=== PATIENT | male | born 1990 | race Caucasian/White ===

== ENCOUNTER 2022-11-18 14:15 | Outpatient (OUT) | payer MEDICAID, SELFPAY ==
[2022-11-18 16:09] LABS: Free T4 0.86 ng/dL (0.76-1.46); Thyroid Stimulating Hormone 0.886 uIU/mL (0.358-3.740)
[2022-11-19 04:07] LABS: Triiodothyronine (T3) 112 ng/dL (71-180)
== END 2022-11-18 14:16 | disposition home or self-care (01) ==
LOC: LAB 14:18
PROVIDERS: PCP Family Medicine; Visit Provider Internal Medicine Cardiovascular Disease
DX: R53.83 Other fatigue (principal); T50.B95A Adverse effect of other viral vaccines, initial encounter
CPT/HCPCS: 36415; 84439; 84443; 84480

== ENCOUNTER 2023-01-06 14:20 | Outpatient (OUT) | payer MEDICAID, SELFPAY ==
--- NOTE | 2023-01-06 14:29 | XR_ITS ---
The [address] [address] Patient Name: NOLVIA RASMUSSEN MRN: [id number] date: 1990 Sex: M Assigned Patient Location: [facility] Current Patient Location: Accession/Order Number: [id number] Exam Date: 01/06/2023 14:34 Report Date: 01/07/2023 00:18 At the request of: JO IRAHETA Procedure: XR knee LT 3V PROCEDURE: XR knee LT 3V HISTORY: Meniscal Injury Left S83.92XA ; acute medial left knee pain COMPARISON: None. FINDINGS: BONES:No fracture, acute abnormality, or significant arthropathy. SOFT TISSUES:No visible soft tissue swelling. EFFUSION:None visible. OTHER: Negative. XR/XR knee LT 3V IMPRESSION: 1. Normal appearance of left knee. Electronically authenticated by: JENNIFER LIU Date: 01/07/2023 00:18
== END 2023-01-06 14:21 | disposition home or self-care (01) ==
LOC: RAD 14:20
PROVIDERS: PCP Family Medicine; Visit Provider Family Medicine
DX: S83.92XA Sprain of unspecified site of left knee, initial encounter (principal)
CPT/HCPCS: 73562

== ENCOUNTER 2023-01-22 09:18 | Outpatient (OUT) | payer MEDICAID, SELFPAY ==
--- NOTE | 2023-01-22 09:22 | MR_ITS ---
The [place] [id number] Patient Name: NOLVIA RASMUSSEN MRN: [id number] date: 1990 Sex: M Assigned Patient Location: MRI Current Patient Location: MRI Accession/Order Number: [id number] Exam Date: 01/22/2023 10:00 Report Date: 01/22/2023 11:09 At the request of: JO IRAHETA Procedure: MR knee LT wo con MR knee LT wo con, 01/22/2023 10:00 AM EST INDICATION: Meniscal Injury Left S83.02XA COMPARISON: Prior x-ray dated 01/06/2023 TECHNIQUE: Multiplanar and multisequential MR images of the left knee were obtained without contrast. FINDINGS: Meniscus: No definite abnormality of menisci is noted. No abnormality of meniscal roots is noted. Ligaments: The ACL, PCL, LCL, MCL and iliotibial tract are unremarkable. Cartilage: There is focal fissuring and partial-thickness defect (less than 50%) in the medial facet of patella. The remainder of cartilages are unremarkable for age. Bone: There is no bone marrow edema. No osseus lesion. No acute fracture or dislocation. Muscles and tendons: The visualized portions of muscles and its tendons are unremarkable. There is trace intra-articular joint effusion. MR/MR knee LT wo con IMPRESSION: Mild chondrosis of the medial facet of patella. Otherwise, no significant abnormality is noted. Electronically authenticated by: MICH GARCIA Date: 01/22/2023 11:09
== END 2023-01-22 09:19 | disposition home or self-care (01) ==
LOC: MRI 09:19
PROVIDERS: PCP Family Medicine; Visit Provider Family Medicine
DX: S83.92XA Sprain of unspecified site of left knee, initial encounter (principal)
CPT/HCPCS: 73721

== ENCOUNTER 2023-09-05 14:25 | Emergency (ER) | payer MEDICAID, SELFPAY ==
[2023-09-05] VITALS (16 sets, daily range): BP systolic 102–129; BP diastolic 74–82; PULSE 71–82; TEMP 36.8; O2SAT 97–100; BMI 29.5
--- NOTE | 2023-09-05 14:49 | ECG_ITS ---
The [facility] Test Date: 2023-09-05 Pat Name: NOLVIA RASMUSSEN Department: Room: - Gender: Male [employer]: : 1990 Requested By: JO IRAHETA Order Number: [id number] Reading MD: JO IRAHETA Measurements Intervals [place] Rate: 79 P: 46 SD: 164 QRS: 35 QRSD: 88 T: 60 QT: 374 QTc: 409 Interpretive Statements 1100 Sinus rhythm 9110 normal ECG No previous ECG available for comparison Electronically Signed On 09-06-2023 6:56:09 EDT by JO IRAHETA
--- NOTE | 2023-09-05 14:59 | CT_ITS ---
The [address] [address] Patient Name: NOLVIA RASMUSSEN MRN: [id number] date: 1990 Sex: M Assigned Patient Location: ER Current Patient Location: ER Accession/Order Number: [id number] Exam Date: 09/05/2023 15:12 Report Date: 09/05/2023 15:56 At the request of: KOREY TERRAZAS Procedure: CT head/brain wo con EXAM: CT head/brain wo con HISTORY: seizure ? COMPARISON: None. TECHNIQUE: Axial CT scans through the head were obtained without IV contrast administration. Dose reduction techniques were achieved by using: automated exposure control and/or adjustment of mA and /or kV according to patient size and/or use of iterative reconstruction technique. FINDINGS: There is no acute intracranial hemorrhage or abnormal extra-axial fluid collection. No mass effect or midline shift is seen. There is no evidence of large acute territorial infarction. There is no hydrocephalus. To the limit of CT, the posterior fossa appears unremarkable. The calvaria and extra cranial soft tissues are unremarkable. The visualized orbits show no abnormality. The visualized paranasal sinuses show no air-fluid level. Mastoid air cells are clear. CT/CT head/brain wo con IMPRESSION: No acute intracranial process. Electronically authenticated by: FERNANDO ENGEL Date: 09/05/2023 15:56
[2023-09-05] MEDS: 0.9 % SODIUM CHLORIDE 1,000 ML 1000 ML IV (15:02)
[2023-09-05 15:09] LABS: Basophils Absolute Auto 0.1 10^3/uL (0.0-0.1); Basophils Percent Auto 0.4 % (0.2-2.0); Eosinophils Absolute Auto 0.3 10^3/uL (0.0-0.7); Eosinophils Percent Auto 2.5 % (0.9-7.0); Hematocrit 46.2 % (42.0-54.0); Hemoglobin 15.5 g/dL (14.0-18.0); Immature Granulocytes Abs Auto 0.06 10^3/uL (0.00-0.03); Immature Granulocytes Pct Auto 0.4 % (0.0-0.5); Lymphocytes Absolute Auto 2.8 10^3/uL (1.2-3.8); Mean Corpuscular HGB Conc 33.5 g/dL (29.9-35.2); Mean Corpuscular Volume 95.5 fL (80.0-94.0); Mean Platelet Volume 10.1 fL (9.5-13.5); Monocytes Absolute Auto 1.4 10^3/uL (0.3-0.8); Monocytes Percent Auto 10.3 % (1.7-12.0); Neutrophils Absolute Auto 8.7 10^3/uL (1.4-6.5); Neutrophils Percent Auto 65.4 % (43.0-75.0); Platelet Count 328 10^3/uL (150-450); Red Blood Count 4.84 10^6/uL (4.70-6.10); Red Cell Distribution Width 12.1 % (11.0-15.0); White Blood Count 13.4 10^3/uL (4.0-11.0)
[2023-09-05 15:19] LABS: Internal Control Within Normal Limits; SARS-CoV-2 Ag NEGATIVE (NEGATIVE)
--- NOTE | 2023-09-05 15:21 | XR_ITS ---
The [address] [address] Patient Name: NOLVIA RASMUSSEN MRN: [id number] date: 1990 Sex: M Assigned Patient Location: ER Current Patient Location: Accession/Order Number: [id number] Exam Date: 09/05/2023 15:30 Report Date: 09/05/2023 17:10 At the request of: KOREY TERRAZAS Procedure: XR chest 1V EXAM: XR chest 1V TECHNIQUE: Single AP view chest HISTORY: cough COMPARISON: None. FINDINGS: The heart and mediastinum are unremarkable. The lung sy are clear of any acute infiltrate, effusion or mass. No acute bony abnormality. Implanted electronic device seen over the left hemithorax. XR/XR chest 1V IMPRESSION: No acute pulmonary disease. Electronically authenticated by: MICHAEL GRIMM Date: 09/05/2023 17:10
[2023-09-05 15:26] LABS: Alanine Aminotransferase 129 U/L (16-63); Albumin Globulin Ratio 1.1; Albumin Level 4.3 g/dL (3.4-5.0); Alkaline Phosphatase 74 U/L (46-116); Anion Gap 11.9; Aspartate Amino Transferase 48 U/L (15-37); BUN Creatinine Ratio 11.7; Bilirubin Total 0.4 mg/dL (0.2-1.0); Calcium 9.5 mg/dL (8.5-10.1); Carbon Dioxide 28.8 mmol/L (21.0-32.0); Chloride 103 mmol/L (98-107); Estimated GFR (African America >60 (>=60); Estimated GFR (Non-African Ame >60 (>=60); Glucose 99 mg/dL (74-106); Magnesium 1.9 mg/dL (1.8-2.4); Potassium 4.7 mmol/L (3.5-5.1); Sodium 139 mmol/L (136-145); Total Protein 8.3 g/dL (6.4-8.2)
--- NOTE | 2023-09-05 17:46 | ED.DIZZY1 ---
HPI - Dizziness General Chief Complaint: Syncope Stated Complaint: COUGHING/NAUSEA/NUMBNESS Time Seen by Provider: 09/05/23 14:48 Source: patient Mode of arrival: walk-in Limitations: no limitations History of Present Illness HPI Narrative: The patient have history of long-haul COVID-19, he has been feeling tired yesterday but today he mentioned that he was just mowing the lawn and apparently spend a lot of time outside where it was warm he was not drinking water, when he got inside that he felt nauseous he was with his mother when he looked at her and vomited and then passed out, the mother mentioned that this happened for few seconds during which there was no tongue biting or incontinence of urine or stool The patient mother mentioned that he had his eye rolling backwards and according to the patient when he woke up he was not confused and his mother also mentioned that he was not confused when he woke up The patient had no chest pain at any time no difficulty breathing he did had a cough before the vomiting Related Data Allergies Allergy/AdvReac Type Severity Reaction Status Date / Time ciprofloxacin [From Cipro] Allergy Intermediate Vomiting Verified 09/05/23 15:03 Review of Systems ROS Status of ROS 10 or more systems reviewed and unremarkable except as noted in history and below Exam Narrative Exam Narrative: Nurses notes and vital signs reviewed and patient is not hypoxic. General: Well-appearing and in no apparent distress. Skin: Warm, dry, no pallor noted. No rash. Head: Normocephalic, atraumatic. Neck: Supple, non-tender. Eye: Pupils are equal, round and EOMI. No scleral icterus. Ears, Nose, Mouth, and Throat: TM are clear, no nasal mucosal hypertrophy. Oral mucosa is moist, no posterior oropharynx erythema, uvula is mid-line Cardiovascular: Regular Rate and Rhythm without murmur, gallop or rub. Respiratory: No accessory muscle use or respiratory distress. Lungs are clear to auscultation, no wheezing, rales or rhonchi Chest Wall: no tenderness Back: No midline thoracic or lumbar vertebral tenderness. No CVA tenderness Musculoskeletal: normal ROM, no calf or popliteal tenderness, no lower extremity edema/swelling GI: Abdomen is soft, non-distended. Normal bowel sounds. No masses appreciated. No tenderness to palpation. No rebound, guarding, or rigidity noted. Neurological: A&O x4. No cranial nerve dysfunction observed. No truncal ataxia. Moves all extremities. Sensation intact. Psychiatric: Cooperative and interactive. Normal mood and affect. Constitutional Vital Signs, click to edit/add: Last Vital Signs Temp 98.3 F 09/05/23 14:41 Pulse 73 09/05/23 16:30 Resp 25 H 09/05/23 16:30 BP 119/74 09/05/23 16:30 Pulse Ox 97 09/05/23 16:30 O2 Del Method Room Air 09/05/23 15:55 Course Vital Signs Vital signs: Vital Signs Temperature 98.3 F 09/05/23 14:41 Pulse Rate 76 09/05/23 14:41 Respiratory Rate 18 09/05/23 14:41 Blood Pressure 119/75 09/05/23 14:41 Pulse Oximetry 100 09/05/23 14:41 Oxygen Delivery Method Room Air 09/05/23 14:41 Temperature 98.3 F 09/05/23 14:41 Pulse Rate 73 09/05/23 16:30 Respiratory Rate 25 H 09/05/23 16:30 Blood Pressure 119/74 09/05/23 16:30 Pulse Oximetry 97 09/05/23 16:30 Oxygen Delivery Method Room Air 09/05/23 15:55 MDM - Dizziness MDM Narrative Medical decision making narrative: The patient EKG showing sinus rhythm with a heart rate of [address] elevation or depression The patient presentation is could be secondary to either heat reaction or the fact that he had a nausea before that could be vasovagal as well At the moment the patient denies any complaint He was provided with IV fluids CBC and chemistry showed no acute pathology except for some mild elevation in the LFTs and mild elevation in the white blood cells with no source of infection Chest x-ray on the prelim reading showed no acute pathology CT head showed no acute pathology It was noted that the patient have a loop recorder that was placed almost more than 3 days ago but he has not been following up according to his history with his rn admission and does not know what the plan for that. He also did not receive any call regarding any abnormalities Right now the patient presentation is mostly secondary to vasovagal or heat reaction he was feeling much better after IV fluids and his EKG showed no acute concern for any arrhythmia Right now the patient be discharged home with hydration as well as follow-up with his doctor he is to come back in case of new symptoms of concern The patient is to follow up with primary care physician in next 2-3 days or to return to the emergency department should any of the signs or symptoms worsen or new symptoms develop. The patient agrees with the following Diagnosis and Treatment plan and the patient will be discharged home. Lab Data Labs: Lab Results 09/05/23 09/05/23 Range/Units 15:00 15:03 WBC 13.4 H (4.0-11.0) 10^3/uL RBC 4.84 (4.70-6.10) 10^6/uL Hgb 15.5 (14.0-18.0) g/dL Hct 46.2 (42.0-54.0) % MCV 95.5 H (80.0-94.0) fL MCH 32.0 (25.9-34.0) pg MCHC 33.5 (29.9-35.2) g/dL RDW 12.1 (11.0-15.0) % Plt Count 328 (150-450) 10^3/uL MPV 10.1 (9.5-13.5) fL Neut % (Auto) 65.4 (43.0-75.0) % Lymph % (Auto) 21.0 (20.5-60.0) % Gregory % (Auto) 10.3 (1.7-12.0) % Eos % (Auto) 2.5 (0.9-7.0) % Baso % (Auto) 0.4 (0.2-2.0) % Neut # (Auto) 8.7 H (1.4-6.5) 10^3/uL Lymph # (Auto) 2.8 (1.2-3.8) 10^3/uL Gregory # (Auto) 1.4 H (0.3-0.8) 10^3/uL Eos # (Auto) 0.3 (0.0-0.7) 10^3/uL Baso # (Auto) 0.1 (0.0-0.1) 10^3/uL Abs Immat Gran (auto) 0.06 H (0.00-0.03) 10^3/uL Imm/Tot Granulo (auto) 0.4 (0.0-0.5) % Sodium 139 (136-145) mmol/L Potassium 4.7 (3.5-5.1) mmol/L Chloride 103 (98-107) mmol/L Carbon Dioxide 28.8 (21.0-32.0) mmol/L Anion Gap 11.9 BUN 12.0 (7.0-18.0) mg/dL Creatinine 1.03 (0.70-1.30) mg/dL Est GFR ( Amer) >60 (>=60) Est GFR (Non-Af Amer) >60 (>=60) BUN/Creatinine Ratio 11.7 Glucose 99 (74-106) mg/dL Calcium 9.5 (8.5-10.1) mg/dL Magnesium 1.9 (1.8-2.4) mg/dL Total Bilirubin 0.4 (0.2-1.0) mg/dL AST 48 H (15-37) U/L ALT 129 H (16-63) U/L Alkaline Phosphatase 74 (46-116) U/L Troponin I High Sens 5.0 (4.0-76.1) pg/mL Total Protein 8.3 H (6.4-8.2) g/dL Albumin 4.3 (3.4-5.0) g/dL Globulin 4.0 g/dL Albumin/Globulin Ratio 1.1 SARS-CoV-2 Ag (CV2AG) Negative (NEGATIVE) Discharge Plan Discharge Stand Alone Forms: Portal Instructions Chief Complaint: Syncope Clinical Impression: Vasovagal syncope Patient Disposition: Home, Self-Care Time of Disposition Decision: 16:31 Condition: Good Print Language: Ecuadorean Instructions: Syncope (DC) Referrals: Berto Jolly MD [Primary Care Provider] - 1 week Discharge Date/Time: 09/05/23 16:45
== END 2023-09-05 16:45 | disposition home or self-care (01) ==
PROVIDERS: Emergency Provider Emergency Medicine; PCP Family Medicine
DX: R55 Syncope and collapse (principal); U09.9 Post COVID-19 condition, unspecified
CPT/HCPCS: 36415; 70450; 71045; 80053; 83735; 84484; 85025; 87811; 93005; 96360; 99285

== ENCOUNTER 2023-09-23 07:41 | Outpatient (OUT) | payer MEDICAID, SELFPAY ==
--- OUTSIDE RECORDS SUMMARY | 2023-09-23 07:43 | XMS_ITS | CCD ---
Author Organization [facility] Care Team Providers Care Target Trimmer Name Role Phone ESEQUIEL ., DR OSORIO Consulting Unavailable HOY ., DR OSORIO Primary Care Unavailable HOY ., DR OSORIO Admitting Unavailable HOY ., DR OSORIO Attending Unavailable WEST, DR LAVERN Perkins Consulting Unavailable HOY ., DR OSORIO Consulting Unavailable HOY ., DR OSORIO Primary Care Unavailable HOY ., DR OSORIO Admitting Unavailable HOY ., DR OSORIO Attending Unavailable HOY ., DR OSORIO Consulting Unavailable HOY ., DR OSORIO Primary Care Unavailable HOY ., DR OSORIO Admitting Unavailable HOY ., DR OSORIO Attending Unavailable HOY ., DR OSORIO Attending Unavailable HOY ., DR OSORIO Consulting Unavailable HOY ., DR OSORIO Primary Care Unavailable HOY ., DR OSORIO Admitting Unavailable SAUL, LOUIE Attending Unavailable JOSSELINEIALINE Attending Unavailable BARAZI, ALINE Attending Unavailable TERESAMIRI Attending Unavailable LANCE, BETO Referring Unavailable LANCE, BETO Referring Unavailable LANCE, BETO Referring Unavailable LANCE, BETO Referring Unavailable LANCE, BETO Referring Unavailable SAUL, LOUIE Referring Unavailable LANCE, BETO Referring Unavailable Allergies Allergy Classification Reported Allergen(s) Allergy Type Date of Onset Reaction(s) Facility (1 source) Ciprofloxacin Drug Allergy 10-22-2016 [facility] Repository (1 source) Ciprofloxacin; Translations: [CIPROFLOXACIN] Drug Allergy 02-12-2017 [facility] Repository Problems Active Problems Problem Classification Problem Date Documented Da te Episodic/Chronic Congestive heart failure; nonhypertensive (1 source) Unspecified diastolic (congestive) heart failure; Translations: [UNSPECIFIED DIASTOLIC HEART FAILURE] Onset: 10-24-2021 Chronic Coronary atherosclerosis and other heart disease (2 sources) Other forms of angina pectoris; Translations: [Other forms of angina pectoris] Onset: 07-02-2022 Chronic Essential hypertension (2 sources) Essential (primary) hypertension; Translations: [Essential (primary) hypertension] Onset: 08-17-2023 Chronic Hypertension with complications and secondary hypertension (1 source) Hypertensive heart disease with heart failure; Translations: [HTN HEART DISEASE W/HEART FAIL] Onset: 10-24-2021 Chronic Other lower respiratory disease (1 source) Other forms of dyspnea; Translations: [OTHER FORMS OF DYSPNEA] Onset: 06-11-2022 Episodic Residual codes; unclassified (4 sources) Obstructive sleep apnea (adult) (pediatric); Translations: [OBSTRUCTIVE SLEEP APNEA] Onset: 05-20-2022 Chronic Residual codes; unclassified (1 source) Insomnia, unspecified; Translations: [INSOMNIA UNSPECIFIED] Onset: 06-11-2022 Episodic Unclassified (1 source) Myalgic encephalomyelitis/c hronic fatigue syndrome; Translations: [Myalgic encephalomyelitis/c hronic fatigue syndrome] Onset: 08-17-2023 Unclassified (1 source) Post covid-19 condition, unspecified; Translations: [Post covid-19 condition, unspecified] Onset: 08-17-2023 Unclassified (1 source) Other ventricular tachycardia; Translations: [Other ventricular tachycardia] Onset: 07-15-2022 Past or Other Problems Problem Classification Problem Date Documented Da te Episodic/Chronic Cardiac dysrhythmias (2 sources) Palpitations; Translations: [Palpitations] Onset: 06-02-2022 Episodic Deficiency and other anemia (1 source) Anemia, unspecified; Translations: [ANEMIA UNSPECIFIED] Onset: 10-24-2021 Episodic Diabetes mellitus without complication (1 source) Other abnormal glucose; Translations: [OTHER ABNORMAL GLUCOSE] Onset: 10-24-2021 Episodic E Codes: Adverse effects of medical drugs (2 sources) Adverse effect of other viral vaccines, initial encounter; Translations: [Adverse effect of other viral vaccines, initial encounter] Onset: 11-18-2022 Episodic Malaise and fatigue (6 sources) Other fatigue; Translations: [OTHER FATIGUE] Onset: 06-05-2022 Episodic Nonspecific chest pain (3 sources) Chest pain, unspecified; Translations: [CHEST PAIN UNSPECIFIED] Onset: 06-11-2022 Episodic Syncope (6 sources) Syncope and collapse; Translations: [SYNCOPE AND COLLAPSE] Onset: 10-23-2021 Episodic Unclassified (1 source) Myalgic encephalomyelitis/c hronic fatigue syndrome; Translations: [Myalgic encephalomyelitis/c hronic fatigue syndrome] Onset: 08-17-2023 Unclassified (1 source) Post covid-19 condition, unspecified; Translations: [Post covid-19 condition, unspecified] Onset: 08-17-2023 Unclassified (1 source) Other ventricular tachycardia; Translations: [Other ventricular tachycardia] Onset: 02-09-2023 Results Test Name Value Interpretation Reference Range Facility Office Visiton 08-17-2023 Follow-up visit [id number] Alec Echevarria 1990 M Date Provider Department Center 08/17/2023 MIRI ONEAL JEFF [facility] Family History Problem Relation Age of Onset Stroke Father 79 Comments: Needed to have a thrombectomy Other Brother Other Father's Brother Arrhythmia Maternal Grandfather Comments: s/p ablation Angina Maternal Grandfather 79 Heart attack Paternal Grandmother 77 Comments: from massive MD Family Status - Relation Status Age at Father Brother Father's Brother Maternal Grandfather Paternal Grandmother Level of Service:[id number] MS PHYS/QHP TELEPHONE EVALUATION 21-30 MIN Normal [facility] Office Visiton 02-09-2023 Follow-up visit [id number] Alec Echevarria 1990 M [facility] Provider Department Center 02/09/2023 ALINE WOODS JEFF [facility] Family History Problem Relation Age of Onset Stroke Father 79 Comments: Needed to have a thrombectomy Other Brother Other Father's Brother Arrhythmia Maternal Grandfather Comments: s/p ablation Angina Maternal Grandfather 79 Heart attack Paternal Grandmother 77 Comments: from massive MD Family Status - Relation Status Age at Father Brother Father's Brother Maternal Grandfather Paternal Grandmother Level of Service:[id number] MS OFFICE/OUTPATIENT ESTABLISHED MOD MDM 30 MIN Normal [facility] Office Visiton 11-18-2022 Follow-up visit [id number] Alec Echevarria 1990 M Date Provider Department Center 11/18/2022 LOUIE DIAZ JEFF [facility] Family History Problem Relation Age of Onset Stroke Father 79 Comments: Needed to have a thrombectomy Other Brother Other Father's Brother Arrhythmia Maternal Grandfather Comments: s/p ablation Angina Maternal Grandfather 79 Heart attack Paternal Grandmother 77 Comments: from massive MD Family Status - Relation Status Age at Father Brother Father's Brother Maternal Grandfather Paternal Grandmother Level of Service:69528 MS OFFICE/OUTPATIENT NEW MODERATE MDM 45-59 MINUTES Normal [facility] Office Visiton 09-05-2022 Follow-up visit [id number] Alec Echevarria 1990 M Date Provider Department Center 09/05/2022 Neri-ALINE REYES CARD [facility] Family History Problem Relation Age of Onset Stroke Father 79 Comments: Needed to have a thrombectomy Other Brother Other Father's Brother Arrhythmia Maternal Grandfather Comments: s/p ablation Angina Maternal Grandfather 79 Heart attack Paternal Grandmother 77 Comments: from massive MD Family Status - Relation Status Age at Father Brother Father's Brother Maternal Grandfather Paternal Grandmother Level of Service:01650 MS OFFICE/OUTPATIENT ESTABLISHED MOD MDM 30-39 MIN Normal [facility] NM STRESS/REST MULTIon 06-05 NM STRESS/REST MULTI Patient: ALEC ECHEVARRIA. Exam Date: 06/05/2022 : 1990 Gender:M Ordering : DR JO IRAHETA . Admission #: [id number] Family : Order #: [id number] CLICK HERE TO VIEW EXAM RADIOLOGY REPORT PROCEDURE: RADIONUCLIDE IMAGING STRESS/REST MULTI COMPARISON: None. INDICATIONS: Chest pain TECHNIQUE: Exam Description: Stress/Rest one day protocol gated SPECT Rest Imagin.1 mCi Tc-99m Cardiolite IV on 06/05/2022 Stress Imaging 30.6 mCi Tc-99m Cardiolite IV on 06/05/2022 Exercise Protocol: Stevie Heart Rate (bpm): Rest: 65 Max: 162 PMHR: 86 Blood Pressure: Rest: 138/96 Max: 206/116 Exercise Time: Minutes: 11 Seconds: 00 Stage Reached: Stage: 4 Mets 13.4 Symptoms: Rest and peak stress ECG findings were normal and the exercise portion of the study was normal per attending physician Dr. Mejia . For more details please see separate cardiac stress test report. FINDINGS: QUALITY OF STUDY: Good. PERFUSION DEFECT: LOCATION: Basal inferoseptal. Basal inferior. Mid-inferoseptal. Mid-inferior. Apical inferior. SIZE: Large (5 or more segments). SEVERITY: Moderate. TYPE: Persistent. WALL MOTION: Normal. LV SIZE: Enlarged; EDV 120 mL. TID / TCD: None; 0.9 LVEF: Normal. Calculated EF 57%. SUMMARY: Myocardial perfusion imaging study has ABNORMAL findings. CONCLUSION: 1. Moderate to large size area of mild to moderate decreased activity inferior and septal blood, RCA distribution 2. No redistribution to suggest reversible ischemia 3. Normal exercise test Dictated by: Lavern Lima MD on 06/09/2022 at 09:28 Approved by: Lavern Lima MD on 06/09/2022 at 09:31 Normal [facility] ECHOCARDIO M/2D COMPLETEon 0 05-27-2022 ECHOCARDIO M/2D COMPLETE Patient: ALEC ECHEVARRIA Exam Date: 05/27/2022 : 1990 Gender:M Ordering : DR JO IRAHETA . Admission #: [id number] Family : Order #: [id number] CLICK HERE TO VIEW EXAM ECHOCARDIOGRAM REPORT PROCEDURE: CARDIO PULMONARY ECHOCARDIO M/2D COMP INDICATIONS: Chest pain COMPARISON: None. DESCRIPTION: COMPLETE ECHOCARDIOGRAM Real-time transthoracic echocardiography with 2D, M-mode, spectral and color flow Doppler performed. QUALITY: Technical quality was good. LEFT VENTRICLE: Normal chamber size. Borderline left ventricular hypertrophy. Global left ventricular systolic function is normal. LV EF: Visual estimation of left ventricular ejection fraction is 55-60%. DIASTOLIC: Normal diastolic function. ATRIAL SEPTUM: LEFT ATRIUM: Normal chamber size. RIGHT ATRIUM: Normal chamber size. RIGHT VENTRICLE: Normal chamber size. Normal right ventricular systolic function. TRICUSPID VALVE: Normal mobility and thickness. No stenosis with trivial regurgitation. No evidence of pulmonary hypertension. RVSP 25 mmHg MITRAL VALVE: Normal mobility and thickness. No mitral valve prolapse. No evidence of mitral valve stenosis. There is no mitral annular calcification. No mitral regurgitation. AORTIC VALVE: Normal trileaflet appearance. No visible sclerosis. Normal leaflet mobility. No evidence of aortic valve stenosis. Trivial aortic regurgitation. AORTIC ROOT: Normal diameter and appearance. PULMONIC VALVE: Normal thickness and mobility. No stenosis. Trivial regurgitation. PERICARDIUM: No evidence of pericardial effusion. IVC: Collapses with inspirations. Normal size. PLEURA: CONCLUSION: 1. Normal ventricular function. LVEF is 55 to 60%. 2. No significant valvular dysfunction. 3. Normal right-sided pressures. 4. No pericardial effusion. Adult Echocardiography Procedure Report Left Ventricle LVEDD (3.7 - 5.6 cm): 4.26 cm LVESD (2.2 - 4.0 cm): 2.75 cm LVIVS thickness (0.6 - 1.2 cm): 1.11 cm LVPW thickness (0.5 - 1.0 cm): 1.02 cm e': 0.23 m/s E - e': 3.35 LVOT Max Gradient: 3.54 mm[Hg] Peak Velocity (LVOT): 0.94 m/s Mean Velocity (LVOT): 0.59 m/s LVOT Diameter 2.18 cm Left Ventricular Ejection Fraction: 55-60% Left Atrium LA Volume Index (2D A2C): 52.31 ml, 52.31 ml Left Atrium Systolic Dimension: 3.02 cm Mitral Valve MV E to A Ratio: 1.52 Mitral Valve A-Wave Peak Velocity: 0.50 m/s Mitral Valve E-Wave Peak Velocity: 0.76 m/s Right Ventricle RV Internal Diastolic Dimension: 3.63 cm Aorta AO Root Diam: 3.11 cm Ascending Ao Diam: 2.51 cm Aortic Valve AoV Area (Peak Ulisses): 2.93 cm2, 2.93 cm2 AoV Area (VTI): 3.10 cm2, 3.10 cm2 Peak Velocity(Antegrade Flow): 1.19 m/s Peak Gradient(Antegrade Flow): 5.68 mm[Hg] Mean Velocity(Antegrade Flow): 0.85 m/s Mean Gradient(Antegrade Flow): 3.29 mm[Hg] Velocity Time Integral: 24.78 cm Tricuspid Valve Peak Velocity (Regurgitant Flow): 1.97 m/s, 2.33 m/s Peak Velocity: 0.47 m/s Pulmonic Valve Mean Gradient: 2.26 mm[Hg], 2.45 mm[Hg] Mean Velocity: 0.69 m/s, 0.72 m/s Peak Velocity: 1.02 m/s, 1.09 m/s Peak Gradient: 4.14 mm[Hg], 4.75 mm[Hg] Right Atrium Right Atrium Systolic Pressure: 33.03 ml, 33.03 ml Dictated by: Eusebio Washington M.D. on 05/29/2022 at 17:51 Approved by: Eusebio Washington M.D. on 05/29/2022 at 17:54 Normal [facility] T4, T3U, FTI LABCORPon 10-24 Free Thyroxine Index 2.4 Normal 1.2-4.9 [facility] Comment on above: Performed By: #### T HYLC #### [facility] [address] [place] [address] Dr. Mike Turner T3 Uptake 31 % Normal 24-39 [facility] Comment on above: Performed By: #### T HYLC #### [facility] [address] [place] [address] Dr. Mike Turner T4 [Mass/Vol] 7.6 ug/dL Normal 4.5-12.0 [facility] Comment on above: Performed By: #### T HYLC #### [facility] [address] [place] [address] Dr. Mike Turner BNPon 10-23-2021 Natriuretic peptide B (Bld) [Mass/Vol] 46.0 pg/mL Normal <=450.0 [facility] Comment on above: Performed By: #### B RV TECHNICIAN, TSH, CMP, LIPID, CK #### [facility] [address] [place] [address] Dr. Mike Turner CBC AUTO DIFFon 10-23-2021 BASO # 0.0 103/ul Normal 0.0-0.1 [facility] Comment on above: Performed By: #### C BC #### [facility] [address] [place] [address] Dr. Mike Turner Basophils/100 WBC (Bld) 0.3 % Normal 0.2-2.0 [facility] Comment on above: Performed By: #### C BC #### [facility] [address] [place] [address] Dr. Mike Turner EO # 0.1 103/ul Normal 0.0-0.7 [facility] Comment on above: Performed By: #### C BC #### [facility] [address] [address] [address] Mike Turner Eosinophils/100 WBC (Bld) 1.2 % Normal 0.9-7.0 [facility] Comment on above: Performed By: #### C BC #### [facility] [address] [place] [address] Dr. Mike Turner Erythrocyte distribution width (RBC) [Ratio] 12.4 % Normal 11.0-15.0 [facility] Comment on above: Performed By: #### C BC #### [facility] [address] [place] [address] Dr. Mike Turner Hematocrit (Bld) [Volume fraction] 46.3 % Normal 42.0-54.0 [facility] Comment on above: Performed By: #### C BC #### [facility] [address] [place] [address] Dr. Mike Turner Hemoglobin (Bld) [Mass/Vol] 15.4 g/dL Normal 14.0-18.0 [facility] Comment on above: Performed By: #### C BC #### [facility] [address] [place] [address] Dr. Mike Turner IG # 0.05 10e3/ul Critically high 0.00-0.03 [facility] Comment on above: Performed By: #### C BC #### [facility] [address] [place] [address] Dr. Mike Turner IG % 0.5 % Normal 0.0-0.5 [facility] Comment on above: Performed By: #### C BC #### [facility] [address] [place] [address] Dr. Mike Turner LYMPH # 4.0 103/ul Critically high 1.2-3.8 [facility] Comment on above: Performed By: #### C BC #### [facility] [address] [place] [address] Dr. Mike Turner Lymphocytes/100 WBC (Bld) 36.9 % Normal 20.5-60.0 [facility] Comment on above: Performed By: #### C BC #### [facility] [address] [place] [address] Dr. Mike Turner MANUAL DIFF REQ NO Normal [facility] Comment on above: Performed By: #### C BC #### [facility] [address] [place] [address] Dr. Mike Turner MCH (RBC) [Entitic mass] 31.8 pg Normal 25.9-34.0 [facility] Comment on above: Performed By: #### C BC #### [facility] [address] [place] [address] Dr. Mike Turner MCHC (RBC) [Mass/Vol] 33.3 g/dL Normal 29.9-35.2 [facility] Comment on above: Performed By: #### C BC #### [facility] [address] [place] [address] Dr. Mike Turner MCV (RBC) [Entitic vol] 95.7 fL Critically high 80.0-94.0 [facility] Comment on above: Performed By: #### C BC #### [facility] [address] [place] [address] Dr. Mike Turner MONO # 1.2 103/ul Critically high 0.3-0.8 [facility] Comment on above: Performed By: #### C BC #### [facility] [address] [place] [address] Dr. Mike Turner Monocytes/100 WBC (Bld) 10.8 % Normal 1.7-12.0 [facility] Comment on above: Performed By: #### C BC #### [facility] [address] [place] [address] Dr. Mike Turner NEUT # 5.4 103/ul Normal 1.4-6.5 [facility] Comment on above: Performed By: #### C BC #### [facility] [address] [place] [address] Dr. Mike Turner Neutrophils/100 WBC (Bld) 50.3 % Normal 43.0-75.0 [facility] Comment on above: Performed By: #### C BC #### [facility] [address] [place] [address] Dr. Mike Turner Platelet mean volume (Bld) [Entitic vol] 9.7 fL Normal 9.5-13.5 [facility] Comment on above: Performed By: #### C BC #### [facility] [address] [place] [address] Dr. Mike Turner PLT 340 103/ul Normal 150-450 [facility] Comment on above: Performed By: #### C BC #### [facility] [address] [place] [address] Dr. Mike Turner RBC 4.84 106/ul Normal 4.70-6.10 [facility] Comment on above: Performed By: #### C BC #### [facility] [address] [place] [address] Dr. Mike Turner WBC 10.8 103/ul Normal 4.0-11.0 [facility] Comment on above: Performed By: #### C BC #### [facility] [address] [place] [address] Dr. Mike Turner CPKon 10-23-2021 CK [Catalytic activity/Vol] 89 U/L Normal 39-308 [facility] Comment on above: Performed By: #### B RV TECHNICIAN, TSH, CMP, LIPID, CK #### [facility] [address] [place] [address] Dr. Mike Turner GLYCOHEMOGLOBIN A1Con 2021 ADA RECOMMENDATION SEE BELOW Normal [facility] Comment on above: Result Comment: ADA RECOMMENDED LIMIT 4.0 - 6.0 ADA THERAPEUTIC TARGET < 7.0 ACTION SUGGESTED > 7.0 Performed By: #### A 1C #### [facility] [address] [place] [address] Dr. Mike Turner Glucose [Mass/Vol] 103 mg/dL Normal [facility] Comment on above: Performed By: #### A 1C #### [facility] [address] [place] [address] Dr. Mike Turner HbA1c (Bld) [Mass fraction] 5.2 % Normal 4.5-6.2 [facility] Comment on above: Performed By: #### A 1C #### [facility] [address] [place], [place] [address] Dr. Mike Turner IRONon 10-23-2021 Iron [Mass/Vol] 90.0 ug/dL Normal 65.0-175.0 [facility] Comment on above: Performed By: #### I HAL #### [facility] [address] [address] [address] Mike Turner LIPID PROFILEon 10-23-2021 CHOL-HDL RATIO NORM SEE BELOW Normal [facility] Comment on above: Result Comment: 3.3 - 4.4 LOW RISK 4.4 - 7.1 AVERAGE RISK 7.1 - 11.0 MODERATE RISK >11.0 HIGH RISK Performed By: #### B RV TECHNICIAN, TSH, CMP, LIPID, CK ####[facility] [id number] [id number]. Mike Turner Cholesterol [Mass/Vol] 162 mg/dL Normal <=200 [facility] Comment on above: Performed By: #### B RV TECHNICIAN, TSH, CMP, LIPID, CK ####[facility] [id number] [id number]. Mike Turner Cholesterol in HDL [Mass/Vol] 60 mg/dL Normal 40-60 [facility] Comment on above: Performed By: #### B RV TECHNICIAN, TSH, CMP, LIPID, CK ####[facility] [id number] [place], [place] [address]Fi. Mike Turner Cholesterol in LDL [Mass/Vol] 80.8 mg/dL Normal [facility] Comment on above: Performed By: #### B RV TECHNICIAN, TSH, CMP, LIPID, CK ####[facility] [id number] [place], [place] [address]Wz. Mike Turner Cholesterol.total/Ch olesterol in HDL [Mass ratio] 2.7 {ratio} Normal [facility] Comment on above: Performed By: #### B RV TECHNICIAN, TSH, CMP, LIPID, CK ####[facility] [id number] [id number]. Mike Turner HDL NORMAL > or = 60 mg/dl - LO W CARDIOVASCULAR RISK <40 mg/dl - HIGH CARDIOVASCULAR RISK Normal [facility] Comment on above: Performed By: #### B RV TECHNICIAN, TSH, CMP, LIPID, CK ####[facility] [id number] [place] [address]Dr. Mike Turner LDL CALC NORMAL SEE BELOW Normal [facility] Comment on above: Result Comment: <100 mg/dl OPTIMAL 100 - 129 mg/dl NEAR OR ABOVE OPTIMAL 130 - 159 mg/dl BORDERLINE HIGH 160 - 189 mg/dl HIGH >190 mg/dl VERY HIGH Performed By: #### B RV TECHNICIAN, TSH, CMP, LIPID, CK ####[facility] [id number] [place] [address]Dr. Mike Turner Triglyceride [Mass/Vol] 106 mg/dL Normal <=150 [facility] Comment on above: Performed By: #### B RV TECHNICIAN, TSH, CMP, LIPID, CK ####[facility] [id number] [place] [address]Dr. Mike Turner VLDL CALC 21.2 mg/dL Normal [facility] Comment on above: Performed By: #### B RV TECHNICIAN, TSH, CMP, LIPID, CK ####[facility] [id number] [place] [address]DrJoby Turner PROF 14(COMP METB)on 022 Albumin [Mass/Vol] 4.2 g/dL Normal 3.4-5.0 [facility] Comment on above: Performed By: #### B RV TECHNICIAN, TSH, CMP, LIPID, CK #### [facility] [address] [address] [address] Mike Turner Albumin/Globulin [Mass ratio] 1.1 {ratio} Normal [facility] Comment on above: Performed By: #### B RV TECHNICIAN, TSH, CMP, LIPID, CK #### [facility] [address] [address] [address] Mike Turner ALP [Catalytic activity/Vol] 62 U/L Normal 46-116 [facility] Comment on above: Performed By: #### B RV TECHNICIAN, TSH, CMP, LIPID, CK #### [facility] [address] [address] [address] Mike Turner ALT [Catalytic activity/Vol] 32 U/L Normal 16-63 [facility] Comment on above: Performed By: #### B RV TECHNICIAN, TSH, CMP, LIPID, CK #### [facility] [address] [address] [address] Mike Turner Anion gap [Moles/Vol] 11.7 mmol/L Normal [facility] Comment on above: Performed By: #### B RV TECHNICIAN, TSH, CMP, LIPID, CK #### [facility] [address] [address] [address] Mike Turner AST [Catalytic activity/Vol] 12 U/L Critically low 15-37 [facility] Comment on above: Performed By: #### B RV TECHNICIAN, TSH, CMP, LIPID, CK #### [facility] [address] [place] [address] Dr. Mike Turner Bilirubin [Mass/Vol] 0.3 mg/dL Normal 0.2-1.0 [facility] Comment on above: Performed By: #### B RV TECHNICIAN, TSH, CMP, LIPID, CK #### [facility] [address] [address] [address] Mike Turner Calcium [Mass/Vol] 9.1 mg/dL Normal 8.5-10.1 [facility] Comment on above: Performed By: #### B RV TECHNICIAN, TSH, CMP, LIPID, CK #### [facility] [address] [address] [address] Mike Turner Chloride [Moles/Vol] 104 mmol/L Normal 98-107 [facility] Comment on above: Performed By: #### B RV TECHNICIAN, TSH, CMP, LIPID, CK #### [facility] [address] [address] [address] Mike Turner CO2 [Moles/Vol] 27.7 mmol/L Normal 21.0-32.0 [facility] Comment on above: Performed By: #### B RV TECHNICIAN, TSH, CMP, LIPID, CK #### [facility] [address] [address] [address] Mike Turner Creatinine [Mass/Vol] 0.86 mg/dL Normal 0.70-1.30 [facility] Comment on above: Performed By: #### B RV TECHNICIAN, TSH, CMP, LIPID, CK #### [facility] [address] [place] [address] Dr. Mike Turner EGFR-AF LITHUANIAN >60 Normal >=60 [facility] Comment on above: Performed By: #### B RV TECHNICIAN, TSH, CMP, LIPID, CK #### [facility] [address] [address] [address] Mike Turner EGFR-NON AF LITHUANIAN >60 Normal >=60 [facility] Comment on above: Performed By: #### B RV TECHNICIAN, TSH, CMP, LIPID, CK #### [facility] [address] [place] [address] Dr. Mike Turner Globulin (S) [Mass/Vol] 3.7 g/dL Normal [facility] Comment on above: Performed By: #### B RV TECHNICIAN, TSH, CMP, LIPID, CK #### [facility] [address] [place] [address] Dr. Mike Turner Glucose [Mass/Vol] 93 mg/dL Normal 74-106 [facility] Comment on above: Performed By: #### B RV TECHNICIAN, TSH, CMP, LIPID, CK #### [facility] [address] [place] [address] Dr. Mike Turner Potassium [Moles/Vol] 4.4 mmol/L Normal 3.5-5.1 [facility] Comment on above: Performed By: #### B RV TECHNICIAN, TSH, CMP, LIPID, CK #### [facility] [address] [place] [address] Dr. Mike Turner Protein [Mass/Vol] 7.9 g/dL Normal 6.4-8.2 [facility] Comment on above: Performed By: #### B RV TECHNICIAN, TSH, CMP, LIPID, CK #### [facility] [address] [place] [address] Dr. Mike Turner Sodium [Moles/Vol] 139 mmol/L Normal 136-145 [facility] Comment on above: Performed By: #### B RV TECHNICIAN, TSH, CMP, LIPID, CK #### [facility] [address] [address] [address] Mike Turner Urea nitrogen [Mass/Vol] 13.0 mg/dL Normal 7.0-18.0 [facility] Comment on above: Performed By: #### B RV TECHNICIAN, TSH, CMP, LIPID, CK #### [facility] [address] [address] [address] Mike Turner Urea nitrogen/Creatinine [Mass ratio] 15.1 mg/mg Normal [facility] Comment on above: Performed By: #### B RV TECHNICIAN, TSH, CMP, LIPID, CK #### [facility] [address] [address] [address] Mike Turner TSHon 10-23-2021 TSH 1.352 uIU/mL Normal 0.358-3.740 [facility] Comment on above: Performed By: #### B RV TECHNICIAN, TSH, CMP, LIPID, CK #### [facility] [address] [address] [address] Mike Turner Encounters Encounter Date Encounter Type Care Provider Facility Start: 08-17-2023 End: 08-17-2023 ambulatory MIRI MOORE [facility] Start: 08-12-2023 ambulatory BETO DELANEY [facility] Start: 05-20-2023 ambulatory [facility] Start: 02-09-2023 End: 02-09-2023 ambulatory [facility] Start: 11-18-2022 End: 11-18-2022 ambulatory [facility] Start: 09-05-2022 End: 09-05-2022 ambulatory [facility] Start: 06-05-2022 End: 06-06-[address] JO IRAHETA . Facility:[facility] Start: 05-27-2022 End: 05-28-[address] JO IRAHETA . Facility:[facility] Start: 05-20-2022 End: 05-21-[address] JO IRAHETA . Facility:[facility] Start: 10-23-2021 End: 10-24-[address] JO IRAHETA . Facility: Payers Date Payer Category Payer Unknown [id number] 2.16.84 [id number] 1988 Unknown [id number] [id number] [id number] 1988 Unknown [id number] [id number] [id number] 1988 Unknown [id number] [id number] [id number] 1961 Medicaid [id number] 1961 Unknown [id number] Clinical Notes 09-05-2022 to 08-17-2023 Note Date & Type Note Facility 08-17-2023 Note Hypertension is wors ening. Dietary sodium restriction. Medication changes per orders. Blood pressure will be reassessed in 3 months. [facility] 08-17-2023 Note Recommended pt to f/ U with PCP for further evaluation Possibly to start taking antioxidant supplement- as per PCP recommendation Recommended pt to start a regular exercise regime to help improve functional and aerobic capacity. [facility] 08-17-2023 Note Continued palpitatio ns Has stopped diltiazem r/t fatigue and feeling off Recommended to resume diltiazem or start beta shiv- he is agreeable with starting metoprolol 25 mg bid and will continue to monitor b/p at home with goal b/p is < 130/80 [facility] 08-17-2023 Note Currently stable Admits near syncope that he feels coming on and he sits down until feeling passes Remains well hydrated and changes positions slowly. He has not started a regular exercise regime, but states he remains fairly active- cutting wood, yard work, ect.. [facility] 08-17-2023 Note No VT noted on loop recorder remote reports No further syncopal episodes since last visit [facility] 08-17-2023 Note Denied any further a ngina since last visit [facility] 08-17-2023 Note [facility] CARDIOLOGY PROGR ESS NOTE Alec B Wale is a 32 y.o. male here for routine F/U Date of phone call: 08/17/2023- start time 09:00 am, finish time 09:30 am Routine F/U HPI Patient here for 6 mo follow up NSVT vs PSVT, SOB, and syncope/pre-syncope. Still needs to take a break due to chest pain and SOB when exerting himself. He takes no medications. Says his BP and HR are all over the place . His mother is requesting a note stating why he's behind on child support. Patient and his mother state he's unable to work due to these symptoms. His mother states when he does any kind of physical activity he's down for about 3 days afterwards. Denies recurrent syncope but gets lightheaded at times. Says he's severely fatigued. All these symptoms have been present since he had Covid-19 in Feb 2020. Denied chest pain, SOB, Orthopnea, or syncope. Does admit he stopped taking diltiazem r/t fatigue and feeling funny with it. States he has palpitations and fast heart beat at times. Admits near syncope and lightheadedness at times. Review of Systems Constitutional: Positive for malaise/fatigue and night sweats. Cardiovascular: Positive for chest pain ( occasional with over exertion ) and dyspnea on exertion. Respiratory: Positive for cough and sleep disturbances due to breathing. Neurological: Positive for headaches and light-headedness. All other systems reviewed and are negative Total time spent in Medical Discussion including obtaining history from the patient, review of labs, tests with the patient, discussion of assessment and plan: 30 minutes. [facility] The visit was initiated by the patient and conducted [id number] with use of audio-only real time telephone communication between patient and provider for a virtual visit. Verbal consent to provide and bill for this service was obtained on 08/17/2023. Diagnoses and all orders for this visit: Nonsustained ventricular tachycardia (CMS/HCC) Syncope and collapse Stable angina (CMS/HCC) Palpitations - metoprolol tartrate (Lopressor) 25 mg tablet; Take 1 tablet (25 mg) by mouth in the morning and at bedtime. Primary hypertension - metoprolol tartrate (Lopressor) 25 mg tablet; Take 1 tablet (25 mg) by mouth in the morning and at bedtime. COVID-19 malachi mc manifesting chronic fatigue Previous HPI per Mike Reyes NP 02/09/23 Loop data review shows no arrhythmia, Again it does show some episodes of A-fib but these episodes have P waves and therefore not A-fib he feels his symptoms of lightheadedness and dizziness have improved but he still experiences them from time to time we discussed his eating habits and hydration habits with regards to his work, and lack of exercise he does wake up short of breath at times he says that maybe 3-4 times a week, takes his rescue inhaler and has relief. discussed with him he needs to follow-up with PCP regarding maybe being on a maintenance inhaler to avoid use of rescue inhaler. he is working on cutting back on smoking and has made 1 pack last 1 week versus a pack per day he denies any recent chest pain, syncope/presyncope, he continues to work in labor-intensive environment and does ok 11/18/22 HPI: Alec Echevarria is a 32 y.o. year old with past medical history of cov19, htn, kate, palpitations, syncope and presyncope, s/p loop implant per dr. Delaney. patient established as a new patient 05/2022 per Elliott IRAHETA for complaints of chest pain, lightheadedness, dizziness, palpitations, shortness of breath with 2 syncopal episodes 1 in September 2021 while walking downstairs became syncopal and fell down, second episode October 2021 while he was driving and he was able to pull off to the side of the road before syncopal episode. He has been having chest pain for the past year since having COVID. Pain is left midsternal, occasionally will radiate up to his left collar bone, he gets accompanied dizziness/LH, palpitations, shortness of breath. Typically occurs with exertion, lasts for 10-15 mins then will resolve on its own, if it doesn't resolve then he will sit and rest and this will help. he underwent a cardiac cath on 07/15/2022 which was unremarkable. He was started on Cardizem 120 mg once daily by Aline IRAHETA. no episodes of syncope endorsed since the loop has been implanted. He states his effort tolerance is very poor and feels washed out after 1 day of work. Loop monitor was placed on 06/10/2022. I personally reviewed the data on the [employer] website. most of the asystole episodes episodes mentioned under sensing, and most of the A-fib episodes mentioned it PACs or noise. Cath 07/15/22 Hemodynamic Data: LV: 108/8, 15 AO: 104/71 (88) Coronary angiography: This is a right dominant circulation. Left Main: this arises from the left coronary cusp. It bifurcates into left anterior sending and circumflex vessels. The left main is angiographically normal. Le (more content not included)... [facility] 08-17-2023 Note Patient here for 6 m o follow up NSVT vs PSVT, SOB, and syncope/pre-syncope. Still needs to take a break due to chest pain and SOB when exerting himself. He takes no medications. Says his BP and HR are all over the place . His mother is requesting a note stating why he's behind on child support. Patient and his mother state he's unable to work due to these symptoms. His mother states when he does any kind of physical activity he's down for about 3 days afterwards. Denies recurrent syncope but gets lightheaded at times. Says he's severely fatigued. All these symptoms have been present since he had Covid-19 in Feb 2020. Review of Systems Constitutional: Positive for malaise/fatigue and night sweats. Cardiovascular: Positive for chest pain ( occasional with over exertion ) and dyspnea on exertion. Respiratory: Positive for cough and sleep disturbances due to breathing. Neurological: Positive for headaches and light-headedness. All other systems reviewed and are negative. [facility] 02-09-2023 Note Patient here for 3 m o follow up NSVT, SOB, and syncope/pre-syncope. Had thyroid function in Oct 2022. No recurrent syncope/pre-syncope. Wakes up SOB at night sometimes. Had sleep study last year but was not fitted for cpap/bipap. Says he was borderline for DANA. He is not taking cardizem due to side effects. He did not care for the way it made him feel. Review of Systems Constitutional: Positive for night sweats. Cardiovascular: Positive for chest pain ( occasional with over exertion ) and dyspnea on exertion. Respiratory: Positive for cough and sleep disturbances due to breathing. Neurological: Positive for headaches and light-headedness. All other systems reviewed and are negative. [facility] 02-09-2023 Note MD Electrophysiology Consult Note Reason for visit: NSVT with symptoms of syncope, dizziness, palpitations 02/09/23 Loop data review shows no arrhythmia, Again it does show some episodes of A-fib but these episodes have P waves and therefore not A-fib he feels his symptoms of lightheadedness and dizziness have improved but he still experiences them from time to time we discussed his eating habits and hydration habits with regards to his work, and lack of exercise he does wake up short of breath at times he says that maybe 3-4 times a week, takes his rescue inhaler and has relief. discussed with him he needs to follow-up with PCP regarding maybe being on a maintenance inhaler to avoid use of rescue inhaler. he is working on cutting back on smoking and has made 1 pack last 1 week versus a pack per day he denies any recent chest pain, syncope/presyncope, he continues to work in labor-intensive environment and does ok 11/18/22 HPI: Alec Echevarria is a 32 y.o. year old with past medical history of cov19, htn, kate, palpitations, syncope and presyncope, s/p loop implant per dr. Delaney. patient established as a new patient 05/2022 per Elliott IRAHETA for complaints of chest pain, lightheadedness, dizziness, palpitations, shortness of breath with 2 syncopal episodes 1 in September 2021 while walking downstairs became syncopal and fell down, second episode October 2021 while he was driving and he was able to pull off to the side of the road before syncopal episode. He has been having chest pain for the past year since having COVID. Pain is left midsternal, occasionally will radiate up to his left collar bone, he gets accompanied dizziness/LH, palpitations, shortness of breath. Typically occurs with exertion, lasts for 10-15 mins then will resolve on its own, if it doesn't resolve then he will sit and rest and this will help. he underwent a cardiac cath on 07/15/2022 which was unremarkable. He was started on Cardizem 120 mg once daily by Aline IRAHETA. no episodes of syncope endorsed since the loop has been implanted. He states his effort tolerance is very poor and feels washed out after 1 day of work. Loop monitor was placed on 06/10/2022. I personally reviewed the data on the [employer] website. most of the asystole episodes episodes mentioned under sensing, and most of the A-fib episodes mentioned it PACs or noise. Cath 07/15/22 Hemodynamic Data: LV: 108/8, 15 AO: 104/71 (88) Coronary angiography: This is a right dominant circulation. Left Main: this arises from the left coronary cusp. It bifurcates into left anterior sending and circumflex vessels. The left main is angiographically normal. Left anterior descending: this is angiographically normal. Circumflex: this is angiographically normal. Right coronary artery: this arises from the right coronary cusp. It is a large and dominant vessel. It is angiographically normal. Impression/Findings: Coronary angiogram shows normal coronary angiogram. Mild elevation of left filling pressures. No evidence of aortic valve stenosis per his PCP had a Holter monitor placed 10/2021 which revealed what stated 4 beat NSVT PMH: Past Medical History: Diagnosis Date Abnormal ECG COVID Hypertension Sleep apnea PSH: Past Surgical History: Procedure Laterality Date CARDIAC CATHETERIZATION KNEE ARTHROSCOPY W/ MENISCAL REPAIR Left 03/26/2003 SH: Social Determinants of Health Tobacco Use: High Risk (08/05/2022) Patient History Smoking Tobacco Use: Every Day Smokeless Tobacco Use: Unknown Passive Exposure: Not on file Alcohol Use: Not on file Financial Resource Strain: Not on file Food Insecurity: Not on file Transportation Needs: Not on file Physical Activity: Not on file Stress: Not on file Social Connections: Not on file Intimate Partner Violence: Not on file Depression: Not on file Housing Stability: Not on file Allergies: Allergies Allergen Reactions Ciprofloxacin GI intolerance Weight: 90.3kg Visit Vitals BP 128/86 (BP Location: Left arm, Patient Position: Sitting) Pulse 81 Ht 1.727 m (5' 8 ) Wt 90.3 kg (199 lb) SpO2 96% BMI 30.26 kg/m??? Smoking Status Every Day BSA 2.08 m??? Meds: Current Outpatient Medications on File Prior to Visit Medication Sig Dispense Refill dilTIAZem CD (Cardizem CD) 120 mg 24 hr capsule Take 1 capsule (120 mg) by mouth in the morning. (Patient not taking: Reported on 11/18/2022) 30 capsule 11 No current facility-administered medications on file prior to visit. ROS: Cardio Basic Cardiovascular Symptoms: no lightheadedness, no leg edema, no syncope, no orthopnea, no PND, no claudication, Constitutional Constitutional: no fever, no night sweats, no significant weight gain, no significant weight loss, no exercise intolerance Eyes Eyes: no dry eyes, no irritation, no vision change ENMT Ears: no difficulty hearing, no ear pain Nose: no frequent nosebleeds (more content not included)... [facility] 11-18-2022 Note MD Electrophysiology Consult Note Reason for visit: NSVT with symptoms of syncope, dizziness, palpitations HPI: Alec Echevarria is a 31 y.o. year old with past medical history of cov19, htn, kate, palpitations, syncope and presyncope, s/p loop implant per dr. Delaney. patient established as a new patient 05/2022 per Elliott IRAHETA for complaints of chest pain, lightheadedness, dizziness, palpitations, shortness of breath with 2 syncopal episodes 1 in September 2021 while walking downstairs became syncopal and fell down, second episode October 2021 while he was driving and he was able to pull off to the side of the road before syncopal episode. He has been having chest pain for the past year since having COVID. Pain is left midsternal, occasionally will radiate up to his left collar bone, he gets accompanied dizziness/LH, palpitations, shortness of breath. Typically occurs with exertion, lasts for 10-15 mins then will resolve on its own, if it doesn't resolve then he will sit and rest and this will help. he underwent a cardiac cath on 07/15/2022 which was unremarkable. He was started on Cardizem 120 mg once daily by Aline IRAHETA. no episodes of syncope endorsed since the loop has been implanted. He states his effort tolerance is very poor and feels washed out after 1 day of work. Loop monitor was placed on 06/10/2022. I personally reviewed the data on the [employer] website. most of the asystole episodes episodes mentioned under sensing, and most of the A-fib episodes mentioned it PACs or noise. Cath 07/15/22 Hemodynamic Data: LV: 108/8, 15 AO: 104/71 (88) Coronary angiography: This is a right dominant circulation. Left Main: this arises from the left coronary cusp. It bifurcates into left anterior sending and circumflex vessels. The left main is angiographically normal. Left anterior descending: this is angiographically normal. Circumflex: this is angiographically normal. Right coronary artery: this arises from the right coronary cusp. It is a large and dominant vessel. It is angiographically normal. Impression/Findings: Coronary angiogram shows normal coronary angiogram. Mild elevation of left filling pressures. No evidence of aortic valve stenosis per his PCP had a Holter monitor placed 10/2021 which revealed what stated 4 beat NSVT PMH: Past Medical History: Diagnosis Date Abnormal ECG COVID Hypertension Sleep apnea PSH: Past Surgical History: Procedure Laterality Date CARDIAC CATHETERIZATION KNEE ARTHROSCOPY W/ MENISCAL REPAIR Left 03/26/2003 SH: Social Determinants of Health Tobacco Use: High Risk (08/05/2022) Patient History Smoking Tobacco Use: Every Day Smokeless Tobacco Use: Unknown Passive Exposure: Not on file Alcohol Use: Not on file Financial Resource Strain: Not on file Food Insecurity: Not on file Transportation Needs: Not on file Physical Activity: Not on file Stress: Not on file Social Connections: Not on file Intimate Partner Violence: Not on file Depression: Not on file Housing Stability: Not on file Allergies: Allergies Allergen Reactions Ciprofloxacin GI intolerance Weight: 89.8kg Visit Vitals BP 135/85 Pulse 75 Wt 89.8 kg (198 lb) SpO2 97% BMI 30.11 kg/m??? Smoking Status Every Day BSA 2.08 m??? Meds: Current Outpatient Medications on File Prior to Visit Medication Sig Dispense Refill dilTIAZem CD (Cardizem CD) 120 mg 24 hr capsule Take 1 capsule (120 mg) by mouth in the morning. (Patient not taking: Reported on 11/18/2022) 30 capsule 11 No current facility-administered medications on file prior to visit. ROS: Cardio Basic Cardiovascular Symptoms: no lightheadedness, no leg edema, no syncope, no orthopnea, no PND, no claudication, Constitutional Constitutional: no fever, no night sweats, no significant weight gain, no significant weight loss, no exercise intolerance Eyes Eyes: no dry eyes, no irritation, no vision change ENMT Ears: no difficulty hearing, no ear pain Nose: no frequent nosebleeds, Mouth/Throat: no sore throat, no bleeding gums, no snoring, no dry mouth, no mouth ulcers, no oral abnormalities, no teeth problems Respiratory Respiratory: no cough, no wheezing, no coughing up blood, no sleep apnea Musculoskeletal Musculoskeletal: no muscle aches, no muscle weakness, joint pain+, no back pain, no swelling in the extremities Integumentary Skin no rash, no ulcer, no varicosities, no discoloration, no pruritus Neurologic Neurologic: no loss of consciousness, no weakness, no numbness, no seizures, no dizziness, no headaches Psychiatric Psych: no depression, feeling safe in relationship, no alcohol abuse, Hematologic/Lymphatic Hematologic/Lymphatic no swollen glands, no bruising Physical Exam: Constitutional General Appearance: well-nourished, well-developed, appears stated age Level of Distress: comfortable Psychiatric Mental Status: alert, normal affect Eddie (more content not included)... [facility] 09-05-2022 Note [facility] Electrophysiology Consult Note Reason for visit: new to EP, referred for Holter monitor findings of NSVT with symptoms of syncope, dizziness, palpitations HPI: Alec Echevarria is a 31 y.o. year old with past medical history of cov19, htn, kate, palpitations, syncope and presyncope, s/p loop implant per dr. delaney patient established as a new patient 05/2022 per Elliott IRAHETA for complaints of chest pain, lightheadedness, dizziness, palpitations, shortness of breath with 2 syncopal episodes 1 in September 2021 while walking downstairs became syncopal and fell down, second episode October 2021 while he was driving and he was able to pull off to the side of the road before syncopal episode. per his PCP had a Holter monitor placed 10/2021 which revealed what stated 4 beat NSVT ---- ----- Per Elliott Moreaudarcy Echevarria is a 31 y.o. male here for follow-up after his recent cath procedure. His mother Jael accompanied him today. He has been having chest pain for the past year since having COVID. Pain is left midsternal, occasionally will radiate up to his left collar bone, he gets accompanied dizziness/LH, palpitations, shortness of breath. Typically occurs with exertion, lasts for 10-15 mins then will resolve on its own, if it doesn't resolve then he will sit and rest and this will help. He has blacked out on a two occasions. One episode September,, he was walking down the stairs and blacked out going down and fell down the stairs. Other episode, October 2021, while he was driving - he was able to pull off to the side of the road before he went out. He has had issues with intermittent dizziness/LH, blurry vision, palpitations, headaches consistently since then. He c/o SOB with any activity. He c/o ongoing fatigue, he sleeps a lot. Mother saw him sleeping one time and thought she saw his heart fluttering or jumping on the outside of his chest. He had an episode a couple weeks ago where his left arm and left leg went numb and he had weakness as well. Lasted for 15 minutes then resolved on its own. 08/05/2022 Since last seen he underwent cardiac cath for an abnormal stress test which showed normal coronary arteries. He continues to have symptoms. He had dizziness, palpitations, and chest discomfort while working this past weekend. He stopped, took a break and his sx's improved. Spoke to device clinic, no events recorded. ---- - PMH: Past Medical History: Diagnosis Date Abnormal ECG COVID Hypertension Sleep apnea PSH: Past Surgical History: Procedure Laterality Date CARDIAC CATHETERIZATION KNEE ARTHROSCOPY W/ MENISCAL REPAIR Left 03/26/2003 SH: Social Determinants of Health Tobacco Use: High Risk (08/05/2022) Patient History Smoking Tobacco Use: Every Day Smokeless Tobacco Use: Unknown Passive Exposure: Not on file Alcohol Use: Not on file Financial Resource Strain: Not on file Food Insecurity: Not on file Transportation Needs: Not on file Physical Activity: Not on file Stress: Not on file Social Connections: Not on file Intimate Partner Violence: Not on file Depression: Not on file Housing Stability: Not on file Allergies: Allergies Allergen Reactions Ciprofloxacin GI intolerance Weight: 93.9kg Visit Vitals BP 124/88 (BP Location: Left arm, Patient Position: Sitting) Pulse 70 Ht 1.727 m (5' 8 ) Wt 93.9 kg (207 lb) SpO2 98% BMI 31.47 kg/m??? Smoking Status Every Day BSA 2.12 m??? Meds: Current Outpatient Medications on File Prior to Visit Medication Sig Dispense Refill metoprolol tartrate (Lopressor) 25 mg tablet Take 1 tablet (25 mg) by mouth in the morning and at bedtime. 60 tablet 11 [DISCONTINUED] diclofenac (Voltaren) 75 mg EC tablet Take 75 mg by mouth in the morning and at bedtime. Do not crush, chew, or split. [DISCONTINUED] tiZANidine (Zanaflex) 4 mg tablet Take 4 mg by mouth every 6 (six) hours if needed for muscle spasms. No current facility-administered medications on file prior to visit. ROS: Cardio Basic Cardiovascular Symptoms: no lightheadedness, no leg edema, no syncope, no orthopnea, no PND, no claudication, Constitutional Constitutional: no fever, no night sweats, no significant weight gain, no significant weight loss, no exercise intolerance Eyes Eyes: no dry eyes, no irritation, no vision change ENMT Ears: no difficulty hearing, no ear pain Nose: no frequent nosebleeds, Mouth/Throat: no sore throat, no bleeding gums, no snoring, no dry mouth, no mouth ulcers, no oral abnormalities, no teeth problems Respiratory Respiratory: no cough, no wheezing, no coughing up blood, no sleep apnea Musculoskeletal Musculoskeletal: no muscle aches, no muscle weakness, joint pain+, no back pain, no swelling in the extremities Integumentary S (more content not included)... [facility] 09-05-2022 Note Patient here for fol low up per Lillian Gallagher CNP to discuss possible EP study. He was started on metoprolol at last visit but did not like the way it made him feel so he stopped it. Review of Systems Constitutional: Positive for night sweats. Cardiovascular: Positive for chest pain (with over exertion ), dyspnea on exertion and palpitations ( sometimes ). Respiratory: Positive for shortness of breath. Neurological: Positive for headaches and light-headedness. All other systems reviewed and are negative. [facility] Summary Purpose Family History No Family History Records FoundNo Family History Records Found Advance Directives No Advanced Directives Records FoundNo Advanced Directives Records Found Additional Source Comments (unrecognized sect ion and content) No Status Records FoundNo Status Records Found INFORMATION SOURCE (unrecogn ized section and content) DATE CREATED AUTHOR 06/12/2022 [facility] DATE CREATED AUTHOR AUTHOR'S HANNAH SHELTON 08/17/2023 [facility] FOR RECORDS PERTAINING TO PATIENTS WHO ARE OR HAVE BEEN ENROLLED IN A CHEMICAL DEPENDENCY/SUBSTANCEABUSE PROGRAM, SOME INFORMATION MAY BE OMITTED. This clinical summary was aggregated from multiple sources. Caution should be exercised in using it in the provision of clinical care. This summary normalizes information from multiple sources, and as a consequence, information in this document may materially change the coding, format and clinical context of patient data. In addition, data may be omitted in some cases. CLINICAL DECISIONS SHOULD BE BASED ON THE PRIMARY CLINICAL RECORDS. [employer] provides no warranty or guarantee of the accuracy or completeness of information in this document.
== END 2023-09-23 07:42 | disposition home or self-care (01) ==
LOC: CARD 07:41
PROVIDERS: PCP Family Medicine; Visit Provider Family Medicine
DX: R55 Syncope and collapse (principal); R56.9 Unspecified convulsions
CPT/HCPCS: 95819

== ENCOUNTER 2023-12-07 07:44 | Outpatient (OUT) | payer MEDICAID, SELFPAY ==
--- NOTE | 2023-12-07 07:46 | CT_ITS ---
The [address] [address] Patient Name: NOLVIA RASMUSSEN MRN: [id number] date: 1990 Sex: M Assigned Patient Location: CT Current Patient Location: CT Accession/Order Number: [id number] Exam Date: 12/07/2023 08:12 Report Date: 12/07/2023 22:41 At the request of: JO IRAHETA Procedure: CT head/brain wo/w con EXAM: CT head/brain wo/w con HISTORY: Seizure, Syncope COMPARISON: CT brain 09/05/2023. TECHNIQUE: Axial CT scans through the head were obtained after the administration of intravenous contrast. Dose reduction techniques were achieved by using: automated exposure control and/or adjustment of mA and /or kV according to patient size and/or use of iterative reconstruction technique. FINDINGS: There is no acute intracranial hemorrhage or abnormal extra-axial fluid collection. No mass effect or midline shift is seen. There is no evidence of large acute territorial infarction. There is no hydrocephalus. To the limit of CT, the posterior fossa appears unremarkable. There are no abnormal parenchymal or leptomeningeal enhancement. The calvaria and extra cranial soft tissues are unremarkable. The visualized orbits show no abnormality. The visualized paranasal sinuses show no air-fluid level. Mild mucosal thickening of bilateral sphenoid sinus and ethmoid air cells. Mastoid air cells are clear. CT/CT head/brain wo/w con IMPRESSION: No acute intracranial abnormality or abnormal intracranial enhancement. MRI brain with contrast is recommended if needed, as a more sensitive modality in assessing for possible seizure foci. Electronically authenticated by: FERNANDO SALDANAU Date: 12/07/2023 22:41
--- OUTSIDE RECORDS SUMMARY | 2023-12-07 07:48 | XMS_ITS | CCD ---
Author Organization [facility] Care Team Providers Care [employer] Name Role Phone ESEQUIEL ., DR OSORIO Consulting Unavailable HOY ., DR OSORIO Primary Care Unavailable HOY ., DR OSORIO Admitting Unavailable HOY ., DR OSORIO Attending Unavailable [place], DR LAVERN Perkins Consulting Unavailable HOY ., [...] ., DR OSORIO Admitting Unavailable SAUL, LOUIE Referring Unavailable LANCE, BETO Referring Unavailable SAUL, LOUIE Referring Unavailable SAUL, LOUIE Referring Unavailable LANCE, BETO Referring Unavailable LANCE, BETO Referring Unavailable LANCE, BETO Referring Unavailable LANCE, BETO Referring Unavailable LANCE, BETO Referring Unavailable TERESAMIRI Attending Unavailable BARAZALINE Boggs Attending Unavailable LANCE, BETO Referring Unavailable Allergies Allergy Classification Reported Allergen(s) Allergy Type Date of Onset Reaction(s) Facility (1 source) Ciprofloxacin Drug Allergy 10-22-2016 [facility] Repository (1 source) Ciprofloxacin; Translations: [CIPROFLOXACIN] Drug Allergy 02-12-2017 [facility] Repository Problems Active Problems Problem Classification Problem [...] HEART DISEASE W/HEART FAIL] Onset: 10-24-2021 Chronic Malaise and fatigue (4 sources) Other fatigue; Translations: [OTHER FATIGUE] Onset: 06-05-2022 Episodic Nonspecific chest pain (1 source) Chest pain, unspecified; Translations: [CHEST PAIN UNSPECIFIED] Onset: 06-11-2022 Episodic Other lower respiratory disease (1 source) Other forms of dyspnea; Translations: [OTHER FORMS OF DYSPNEA] Onset: 06-11-2022 Episodic Residual codes; unclassified (4 sources) Obstructive sleep apnea (adult) (pediatric); Translations: [OBSTRUCTIVE SLEEP APNEA] Onset: 05-20-2022 Chronic Residual codes; unclassified (1 source) Insomnia, unspecified; Translations: [INSOMNIA UNSPECIFIED] Onset: 06-11-2022 Episodic Unclassified (1 source) Other ventricular tachycardia; Translations: [Other ventricular tachycardia] Onset: 07-15-2022 Unclassified (1 source) Myalgic encephalomyelitis/c hronic fatigue syndrome; Translations: [Myalgic encephalomyelitis/c hronic fatigue syndrome] Onset: 08-17-2023 Unclassified (1 source) Post covid-19 condition, unspecified; Translations: [Post covid-19 condition, unspecified] Onset: 08-17-2023 Past or Other Problems Problem Classification Problem Date Documented Da te Episodic/Chronic Cardiac dysrhythmias (2 sources) Palpitations; Translations: [Palpitations] Onset: 06-02-2022 Episodic Deficiency and other anemia (1 source) Anemia, unspecified; Translations: [ANEMIA UNSPECIFIED] Onset: 10-24-2021 Episodic Diabetes mellitus without complication (1 source) Other abnormal glucose; Translations: [OTHER ABNORMAL GLUCOSE] Onset: 10-24-2021 Episodic Syncope (6 sources) Syncope and collapse; Translations: [SYNCOPE AND COLLAPSE] Onset: 10-23-2021 Episodic Unclassified (1 source) Other ventricular tachycardia; Translations: [Other ventricular tachycardia] Onset: 08-17-2023 Unclassified (1 source) Myalgic encephalomyelitis/c hronic fatigue syndrome; Translations: [Myalgic encephalomyelitis/c hronic fatigue syndrome] Onset: 08-17-2023 Unclassified (1 source) Post covid-19 condition, unspecified; Translations: [Post covid-19 condition, unspecified] Onset: 08-17-2023 Results Test Name Value Interpretation Reference Range Facility Office Visiton 08-17-2023 Follow-up visit [id number] Alec Echevarria 1990 M Date Provider Department Center 08/17/2023 MIRI ONEAL JEFF [place] Family History Problem Relation Age of Onset Stroke Father 79 Comments: Needed to have a thrombectomy Other Brother Other Father's Brother Arrhythmia Maternal Grandfather Comments: s/p ablation Angina Maternal Grandfather 79 Heart attack Paternal Grandmother 77 Comments: from massive [place] Family Status - Relation Status Age at Father Brother Father's Brother Maternal Grandfather Paternal Grandmother Level of Service:28718 MO PHYS/QHP TELEPHONE EVALUATION 21-30 MIN Normal [facility] Office Visiton 02-09-2023 Follow-up visit [id number] Alec Echevarria 1990 M Date Provider Department Center 02/09/2023 ALINE WOODS JEFF [facility] Family History Problem Relation Age of Onset Stroke Father 79 Comments: Needed to have a thrombectomy Other Brother Other Father's Brother Arrhythmia Maternal Grandfather Comments: s/p ablation Angina Maternal Grandfather 79 Heart attack Paternal Grandmother 77 Comments: from massive [place] Family Status - Relation Status Age at Father Brother Father's Brother Maternal Grandfather Paternal Grandmother Level of Service:19842 MO OFFICE/OUTPATIENT ESTABLISHED MOD MDM 30 MIN Normal [facility] NM STRESS/REST MULTIon 06-05 NM STRESS/REST MULTI Patient: GRADYALEC. Exam Date: 06/05/2022 : 1990 Gender:M Ordering : DR JO IRAHETA . Admission #: [id number] Family : Order #: [id number] CLICK HERE TO VIEW EXAM RADIOLOGY REPORT [...] Lima MD on 06/09/2022 at 09:31 Normal [facility] ECHOCARDIO M/2D COMPLETEon 0 05-27-2022 ECHOCARDIO M/2D COMPLETE Patient: ALEC ECHEVARRIA Exam Date: 05/27/2022 : 1990 Gender:M Ordering : DR JO IRAHETA . Admission #: [id number] Family : Order #: [id number] CLICK HERE TO VIEW EXAM ECHOCARDIOGRAM REPORT [...] M.D. on 05/29/2022 at 17:54 Normal [facility] T4, T3U, FTI LABCORPon 10-24 Free Thyroxine Index 2.4 Normal 1.2-4.9 [facility] Comment on above: Performed By: #### T HYLC #### [facility] [address] [place] [address] Dr. Mike Turner T3 Uptake 31 % Normal 24-39 [facility] Comment on above: Performed By: #### T HYLC #### [facility] [address] [place] [address] Dr. Mike Turner T4 [Mass/Vol] 7.6 ug/dL Normal 4.5-12.0 [facility] Comment on above: Performed By: #### T HYLC #### [facility] [address] [place] [address] Dr. Mike Turner BNPon 10-23-2021 Natriuretic peptide B (Bld) [Mass/Vol] 46.0 pg/mL Normal <=450.0 [facility] Comment on above: Performed By: #### B [employer] TESTER, TSH, CMP, LIPID, CK #### [facility] [address] [place] [address] Dr. Mike Turner CBC AUTO DIFFon 10-23-2021 BASO # 0.0 103/ul Normal 0.0-0.1 [facility] Comment on above: Performed By: #### C BC #### [facility] [address] [address] [address] Mike Turner Basophils/100 WBC (Bld) 0.3 % Normal 0.2-2.0 [facility] Comment on above: Performed By: #### C BC #### [facility] [address] [address] [address] Mike Turner EO # 0.1 103/ul Normal 0.0-0.7 [facility] Comment on above: Performed By: #### C BC #### [facility] [address] [place] [address] Dr. Mike Turner Eosinophils/100 WBC (Bld) 1.2 % Normal 0.9-7.0 [facility] Comment on above: Performed By: #### C BC #### [facility] [address] [place] [address] Dr. Mike Turner Erythrocyte distribution width (RBC) [Ratio] 12.4 % Normal 11.0-15.0 [facility] Comment on above: Performed By: #### C BC #### [facility] [address] [place] [address] Dr. iMke Turner Hematocrit (Bld) [Volume fraction] 46.3 % Normal 42.0-54.0 [facility] Comment on above: Performed By: #### C BC #### [facility] [address] [place] [address] Dr. Mike Turner Hemoglobin (Bld) [Mass/Vol] 15.4 g/dL Normal 14.0-18.0 [facility] Comment on above: Performed By: #### C BC #### [facility] [address] [place] [address] Dr. Mike Turner IG # 0.05 10e3/ul Critically high 0.00-0.03 [facility] Comment on above: Performed By: #### C BC #### [facility] [address] [place] [address] Dr. Mike Turner IG % 0.5 % Normal 0.0-0.5 [facility] Comment on above: Performed By: #### C BC #### [facility] [address] [place] [address] Dr. Mike Turner LYMPH # 4.0 103/ul Critically high 1.2-3.8 [facility] Comment on above: Performed By: #### C BC #### [facility] [address] [place] [address] Dr. Mike Turner Lymphocytes/100 WBC (Bld) 36.9 % Normal 20.5-60.0 [facility] Comment on above: Performed By: #### C BC #### [facility] [address] [place] [address] Dr. Mike Turner MANUAL DIFF REQ NO Normal [facility] Comment on above: Performed By: #### C BC #### [facility] [address] [place] [address] Dr. Mike Turner MCH (RBC) [Entitic mass] 31.8 pg Normal 25.9-34.0 [facility] Comment on above: Performed By: #### C BC #### [facility] [address] [place] [address] Dr. Mike Turner MCHC (RBC) [Mass/Vol] 33.3 g/dL Normal 29.9-35.2 [facility] Comment on above: Performed By: #### C BC #### [facility] [address] [place] [address] Dr. Mike Turner MCV (RBC) [Entitic vol] 95.7 fL Critically high 80.0-94.0 [facility] Comment on above: Performed By: #### C BC #### [facility] [address] [place] [address] Dr. Mike Turner MONO # 1.2 103/ul Critically high 0.3-0.8 [facility] Comment on above: Performed By: #### C BC #### [facility] [address] [place] [address] Dr. Mike Turner Monocytes/100 WBC (Bld) 10.8 % Normal 1.7-12.0 [facility] Comment on above: Performed By: #### C BC #### [facility] [address] [place] [address] Dr. Mike Turner NEUT # 5.4 103/ul Normal 1.4-6.5 [facility] Comment on above: Performed By: #### C BC #### [facility] [address] [place] [address] Dr. Mike Turner Neutrophils/100 WBC (Bld) 50.3 % Normal 43.0-75.0 [facility] Comment on above: Performed By: #### C BC #### [facility] [address] [place] [address] Dr. Mike Turner Platelet mean volume (Bld) [Entitic vol] 9.7 fL Normal 9.5-13.5 [facility] Comment on above: Performed By: #### C BC #### [facility] [address] [place] [address] Dr. Mike Turner PLT 340 103/ul Normal 150-450 [facility] Comment on above: Performed By: #### C BC #### [facility] [address] [place] [address] Dr. Mike Turner RBC 4.84 106/ul Normal 4.70-6.10 [facility] Comment on above: Performed By: #### C BC #### [facility] [address] [place] [address] Dr. Mike Turner WBC 10.8 103/ul Normal 4.0-11.0 [facility] Comment on above: Performed By: #### C BC #### [facility] [address] [place] [address] Dr. Mike Turner CPKon 10-23-2021 CK [Catalytic activity/Vol] 89 U/L Normal 39-308 [facility] Comment on above: Performed By: #### B [employer] TESTER, TSH, CMP, LIPID, CK #### [facility] [address] [place] [address] Dr. Mike Turner GLYCOHEMOGLOBIN A1Con 2021 ADA RECOMMENDATION SEE BELOW Normal [facility] Comment on above: Result Comment: ADA RECOMMENDED LIMIT 4.0 - 6.0 ADA THERAPEUTIC TARGET < 7.0 ACTION SUGGESTED > 7.0 Performed By: #### A 1C #### [facility] [address] [address] [address] Mike Turner Glucose [Mass/Vol] 103 mg/dL Normal [facility] Comment on above: Performed By: #### A 1C #### [facility] [address] [address] [address] Mike Turner HbA1c (Bld) [Mass fraction] 5.2 % Normal 4.5-6.2 [facility] Comment on above: Performed By: #### A 1C #### [facility] [address] [place] [address] Dr. Mike Turner IRONon 10-23-2021 Iron [Mass/Vol] 90.0 ug/dL Normal 65.0-175.0 [facility] Comment on above: Performed By: #### I HAL #### [facility] [address] [address] [address] Mike Turner LIPID PROFILEon 10-23-2021 CHOL-HDL RATIO NORM SEE BELOW Normal [facility] Comment on above: Result Comment: 3.3 - 4.4 LOW RISK 4.4 - 7.1 AVERAGE RISK 7.1 - 11.0 MODERATE RISK >11.0 HIGH RISK Performed By: #### B [employer]ERIAL[employer] TESTER, TSH, CMP, LIPID, CK ####[facility] [address] [id number] Turner Cholesterol [Mass/Vol] 162 mg/dL Normal <=200 [facility] Comment on above: Performed By: #### B [employer]ERIAL[employer] TESTER, TSH, CMP, LIPID, CK ####[facility] [address] [id number] Turner Cholesterol in HDL [Mass/Vol] 60 mg/dL Normal 40-60 [facility] Comment on above: Performed By: #### B [employer] TESTER, TSH, CMP, LIPID, CK ####[facility] [id number] [id number]. Mike Turner Cholesterol in LDL [Mass/Vol] 80.8 mg/dL Normal [facility] Comment on above: Performed By: #### B [employer] TESTER, TSH, CMP, LIPID, CK ####[facility] [address] [address]Dr. Mike Turner Cholesterol.total/Ch olesterol in HDL [Mass ratio] 2.7 {ratio} Normal [facility] Comment on above: Performed By: #### B [employer] TESTER, TSH, CMP, LIPID, CK ####[facility] [address] [address]Dr. Mike Turner HDL NORMAL > or = 60 mg/dl - LO W CARDIOVASCULAR RISK <40 mg/dl - HIGH CARDIOVASCULAR RISK Normal [facility] Comment on above: Performed By: #### B [employer] TE[employer], TSH, CMP, LIPID, CK ####[facility] [address] [address]Dr. Mike Turner LDL CALC NORMAL SEE BELOW Normal [facility] Comment on above: Result Comment: <100 mg/dl OPTIMAL 100 - 129 mg/dl NEAR OR ABOVE OPTIMAL 130 - 159 mg/dl BORDERLINE HIGH 160 - 189 mg/dl HIGH >190 mg/dl VERY HIGH Performed By: #### B [employer] TESTER, TSH, CMP, LIPID, CK ####[facility] [address] [address]Dr. Mike Turner Triglyceride [Mass/Vol] 106 mg/dL Normal <=150 [facility] Comment on above: Performed By: #### B [employer] TESTER, TSH, CMP, LIPID, CK ####[facility] [address] [id number]. Mike Turner VLDL CALC 21.2 mg/dL Normal [facility] Comment on above: Performed By: #### B [employer] TESTER, TSH, CMP, LIPID, CK ####[facility] [address] [address]Dr. Mike Turner PROF 14(COMP METB)on 022 Albumin [Mass/Vol] 4.2 g/dL Normal 3.4-5.0 [facility] Comment on above: Performed By: #### B [employer]STRU[employer] TESTER, TSH, CMP, LIPID, CK #### [facility] [address] [place] [address] Dr. Mike Turner Albumin/Globulin [Mass ratio] 1.1 {ratio} Normal [facility] Comment on above: Performed By: #### B [employer]STRU[employer]ERIAL[employer] TESTER, TSH, CMP, LIPID, CK #### [facility] [address] [place] [address] Dr. Mike Turner ALP [Catalytic activity/Vol] 62 U/L Normal 46-116 [facility] Comment on above: Performed By: #### B CONSTRU[employer]ERIALS TESTER, TSH, CMP, LIPID, CK #### [facility] [address] [place] [address] Dr. Mike Turner ALT [Catalytic activity/Vol] 32 U/L Normal 16-63 [facility] Comment on above: Performed By: #### B CONSTRU[employer]ERIALS TESTER, TSH, CMP, LIPID, CK #### [facility] [address] [place] [address] Dr. Mike Turner Anion gap [Moles/Vol] 11.7 mmol/L Normal [facility] Comment on above: Performed By: #### B CONSTRUCTION [employer]ERIALS TESTER, TSH, CMP, LIPID, CK #### [facility] [address] [place] [address] Dr. Mike Turner AST [Catalytic activity/Vol] 12 U/L Critically low 15-37 [facility] Comment on above: Performed By: #### B CONSTRU[employer]ERIALS TESTER, TSH, CMP, LIPID, CK #### [facility] [address] [place] [address] Dr. Mike Turner Bilirubin [Mass/Vol] 0.3 mg/dL Normal 0.2-1.0 [facility] Comment on above: Performed By: #### B CONSTRUCTION [employer]ERIALS TESTER, TSH, CMP, LIPID, CK #### [facility] [address] [place] [address] Dr. Mike Turner Calcium [Mass/Vol] 9.1 mg/dL Normal 8.5-10.1 [facility] Comment on above: Performed By: #### B CONSTRUCTION MATERIALS TESTER, TSH, CMP, LIPID, CK #### [facility] [address] [place], [place] [address] Dr. Mike Turner Chloride [Moles/Vol] 104 mmol/L Normal 98-107 [facility] Comment on above: Performed By: #### B CONSTRUCTION MATERIALS TESTER, TSH, CMP, LIPID, CK #### [facility] [address] [place] [address] Dr. Mike Turner CO2 [Moles/Vol] 27.7 mmol/L Normal 21.0-32.0 [facility] Comment on above: Performed By: #### B CONSTRUCTION MATERIALS TESTER, TSH, CMP, LIPID, CK #### [facility] [address] [place] [address] Dr. Mike Turner Creatinine [Mass/Vol] 0.86 mg/dL Normal 0.70-1.30 [facility] Comment on above: Performed By: #### B CONSTRU[employer]ERIAL[employer] TESTER, TSH, CMP, LIPID, CK #### [facility] [address] [place] [address] Dr. Mike Turner EGFR-AF [facility] LUCIAN >60 Normal >=60 [facility] Comment on above: Performed By: #### B CONSTRUCTION MATERIALS TESTER, TSH, CMP, LIPID, CK #### [facility] [address] [place] [address] Dr. Mike uTrner EGFR-NON AF [facility] >60 Normal >=60 [facility] Comment on above: Performed By: #### B CONSTRUCTION MATERIALS TESTER, TSH, CMP, LIPID, CK #### [facility] [address] [place] [address] Dr. Mike Turner Globulin (S) [Mass/Vol] 3.7 g/dL Normal [facility] Comment on above: Performed By: #### B CONSTRUCTION MATERIALS TESTER, TSH, CMP, LIPID, CK #### [facility] [address] [place] [address] Dr. Mike Turner Glucose [Mass/Vol] 93 mg/dL Normal 74-106 [facility] Comment on above: Performed By: #### B CONSTRUCTION MATERIALS TESTER, TSH, CMP, LIPID, CK #### [facility] [address] [place] [address] Dr. Mike Turner Potassium [Moles/Vol] 4.4 mmol/L Normal 3.5-5.1 [facility] Comment on above: Performed By: #### B CONSTRUCTION MATERIALS TESTER, TSH, CMP, LIPID, CK #### [facility] [address] [address] [address] Mike Turner Protein [Mass/Vol] 7.9 g/dL Normal 6.4-8.2 [facility] Comment on above: Performed By: #### B CONSTRUCTION MATERIALS TESTER, TSH, CMP, LIPID, CK #### [facility] [address] [address] [address] Mike Turner Sodium [Moles/Vol] 139 mmol/L Normal 136-145 [facility] Comment on above: Performed By: #### B CONSTRUCTION MATERIALS TESTER, TSH, CMP, LIPID, CK #### [facility] [address] [place] [address] Dr. Mike Turner Urea nitrogen [Mass/Vol] 13.0 mg/dL Normal 7.0-18.0 [facility] Comment on above: Performed By: #### B CONSTRUCTION MATERIALS TESTER, TSH, CMP, LIPID, CK #### [facility] [address] [place] [address] Dr. Mike Turner Urea nitrogen/Creatinine [Mass ratio] 15.1 mg/mg Normal [facility] Comment on above: Performed By: #### B CONSTRUCTION MATERIALS TESTER, TSH, CMP, LIPID, CK #### [facility] [address] [place] [address] Dr. Mike Turner TSHon 10-23-2021 TSH 1.352 uIU/mL Normal 0.358-3.740 [facility] Comment on above: Performed By: #### B CONSTRUCTION MATERIALS TESTER, TSH, CMP, LIPID, CK #### [facility] [address] [place] [address] Dr. Mike Turner Encounters Encounter Date Encounter Type Care Provider Facility Start: 11-26-2023 ambulatory BETO LUCAS [facility] Start: 10-19-[address] [facility] Start: 10-02-[address] [facility] Start: 08-17-2023 End: 08-17-2023 ambulatory MIRI MOORE [facility] Start: 08-12-2023 ambulatory BETO LUCAS [facility] Start: 05-20-2023 ambulatory LOUIE HUGHES [facility] Start: 02-09-2023 End: 02-09-2023 ambulatory ALINE ROSADO [facility] Start: 06-05-2022 End: 06-06-[address] JO RIAHETA . Facility:[facility] Start: 05-27-2022 End: 05-28-[address] JO IRAHETA . Facility:[facility] Start: 05-20-2022 End: 05-21-[address] JO IRAHETA . Facility:[facility] Start: 10-23-2021 End: 10-24-[address] JO IRAHETA . Facility:[facility] Payers Date Payer Category Payer Unknown [id number] 2.16.84 [id number] 1990 Unknown [id number] 2.16.84 [id number] 1990 Unknown [id number] 2.16.84 [id number] 1990 Unknown [id number] 2.16.84 [id number] 1961 Medicaid [id number] 1961 Unknown [id number] Progress note 08-17-2023 Note Date & Type Note Facility 08-17-2023 Note Hypertension is wors ening. Dietary sodium restriction. Medication changes per orders. Blood pressure will be reassessed in 3 months. [facility] Progress note 08-17-2023 Note Date & Type Note Facility 08-17-2023 Note Recommended pt to f/ U with PCP for further evaluation Possibly to start taking antioxidant supplement- as per PCP recommendation Recommended pt to start a regular exercise regime to help improve functional and aerobic capacity. [facility] Progress note 08-17-2023 Note Date & Type Note Facility 08-17-2023 Note Continued palpitatio ns Has stopped diltiazem r/t fatigue and feeling off Recommended to resume diltiazem or start beta shiv- he is agreeable with starting metoprolol 25 mg bid and will continue to monitor b/p at home with goal b/p is < 130/80 [facility] Progress note 08-17-2023 Note Date & Type Note Facility 08-17-2023 Note Currently stable Admits near syncope that he feels coming on and he sits down until feeling passes Remains well hydrated and changes positions slowly. He has not started a regular exercise regime, but states he remains fairly active- cutting wood, yard work, ect.. [facility] Progress note 08-17-2023 Note Date & Type Note Facility 08-17-2023 Note No VT noted on loop recorder remote reports No further syncopal episodes since last visit [facility] Progress note 08-17-2023 Note Date & Type Note Facility 08-17-2023 Note Denied any further a ngina since last visit [facility] Progress note 08-17-2023 Note Date & Type Note Facility 08-17-2023 Note Patient here for 6 m [...] All other systems reviewed and are negative. [facility] Progress note 08-17-2023 Note Date & Type Note Facility 08-17-2023 Note [facility] CARDIOLOGY PROGR ESS NOTE Alec Echevarria is a 32 y.o. male here for [...] was initiated by the patient and conducted [id number]-face with use of audio-only real time telephone [...] in the morning and at bedtime. 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 Lucas. patient established as a new patient 05/2022 [...] I personally reviewed the data on the [employer] website. most of the asystole episodes episodes [...] angiographically normal. Le (more content not included)... [facility] Progress note 02-09-2023 Note Date & Type Note Facility 02-09-2023 Note [facility] Electrophysiology Consult Note Reason for visit: NSVT [...] and presyncope, s/p loop implant per dr. Lucas. patient established as a new patient 05/2022 per [facility] [employer] for complaints of chest pain, lightheadedness, dizziness, [...] I personally reviewed the data on the [employer] website. most of the asystole episodes episodes [...] no frequent nosebleeds (more content not included)... [facility] Progress note 02-09-2023 Note Date & Type Note Facility 02-09-2023 Note Patient here for 3 m [...] All other systems reviewed and are negative. [facility] Summary Purpose Family History No Family History Records FoundNo Family History Records Found Advance Directives No Advanced Directives Records FoundNo Advanced Directives Records Found Additional Source Comments (unrecognized sect ion and content) No Status Records FoundNo Status Records Found INFORMATION SOURCE (unrecogn ized section and content) DATE CREATED AUTHOR 06/12/2022 [facility] DATE CREATED AUTHOR AUTHOR'S ORGANIZ ATION 11/28/2023 [facility] FOR RECORDS PERTAINING TO PATIENTS WHO ARE [...] BE BASED ON THE PRIMARY CLINICAL RECORDS. [facility] [employer] provides no warranty or guarantee of the accuracy or completeness of information in this document.
== END 2023-12-07 07:45 | disposition home or self-care (01) ==
LOC: CT 07:44
PROVIDERS: PCP Family Medicine; Visit Provider Family Medicine
DX: R56.9 Unspecified convulsions (principal); R55 Syncope and collapse
CPT/HCPCS: 70470; Q9967

== ENCOUNTER 2024-08-16 11:09 | Outpatient (OUT) | payer MEDICAID, SELFPAY ==
[2024-08-16 11:34] LABS: Basophils Percent Auto 0.2 % (0.2-2.0); Eosinophils Absolute Auto 0.3 10^3/uL (0.0-0.7); Eosinophils Percent Auto 3.8 % (0.9-7.0); Hematocrit 43.8 % (42.0-54.0); Hemoglobin 15.3 g/dL (14.0-18.0); Immature Granulocytes Abs Auto 0.02 10^3/uL (0.00-0.03); Immature Granulocytes Pct Auto 0.2 % (0.0-0.5); Lymphocytes Absolute Auto 3.4 10^3/uL (1.2-3.8); Lymphocytes Percent Auto 39.4 % (20.5-60.0); Mean Corpuscular HGB Conc 34.9 g/dL (29.9-35.2); Mean Corpuscular Hemoglobin 32.4 pg (25.9-34.0); Mean Corpuscular Volume 92.8 fL (80.0-94.0); Mean Platelet Volume 10.2 fL (9.5-13.5); Monocytes Absolute Auto 1.2 10^3/uL (0.3-0.8); Monocytes Percent Auto 13.4 % (1.7-12.0); Neutrophils Absolute Auto 3.7 10^3/uL (1.4-6.5); Platelet Count 347 10^3/uL (150-450); Red Blood Count 4.72 10^6/uL (4.70-6.10); Red Cell Distribution Width 12.1 % (11.0-15.0); White Blood Count 8.6 10^3/uL (4.0-11.0)
[2024-08-16 12:07] LABS: Alanine Aminotransferase 48 U/L (16-63); Alkaline Phosphatase 73 U/L (46-116); Anion Gap 11.5; Aspartate Amino Transferase 19 U/L (15-37); BUN Creatinine Ratio 11.8; Bilirubin Total 0.2 mg/dL (0.2-1.0); Calcium 9.5 mg/dL (8.5-10.1); Carbon Dioxide 28.6 mmol/L (21.0-32.0); Chloride 104 mmol/L (98-107); Creatine Kinase 141 U/L (39-308); Estimated GFR (African America >60 (>=60 mL/min/1.73m^2); Estimated GFR (Non-African Ame >60 (>=60 mL/min/1.73m^2); Free T3 2.74 pg/mL (2.18-3.98); Glucose 107 mg/dL (74-106); Potassium 4.1 mmol/L (3.5-5.1); Sodium 140 mmol/L (136-145); Thyroid Stimulating Hormone 1.534 uIU/mL (0.358-3.740)
== END 2024-08-16 11:10 | disposition home or self-care (01) ==
LOC: LAB 11:11
PROVIDERS: PCP Family Medicine; Visit Provider Family Medicine
DX: R56.9 Unspecified convulsions (principal); J30.2 Other seasonal allergic rhinitis
CPT/HCPCS: 36415; 80053; 82550; 83880; 84436; 84443; 84481; 85025